=== PATIENT | male | born 1990 | race Caucasian/White ===

== ENCOUNTER 2019-09-14 12:05 | Emergency (ER) | payer OTHER ==
[~2019-09-14] VITALS: Ht 177.8 cm; Wt 95.2 kg
[2019-09-14 12:10] VITALS: BP 132/98
[2019-09-14] MEDS ORDERED: LIDOCAINE 2%/EPI 1:100,000 20 ML VIAL. IJ ONE (12:30)
[2019-09-14] MEDS ORDERED: NEOMY/BACITR/POLYMYXIN OINT PACKET. TP ONE (12:30)
--- NOTE | 2019-09-14 12:31 | PHYS DOC ---
Past History Past Medical History: Hypertension (borderline) Additional Past Surgical Histo: Hand cyst Smoking: Non-smoker Alcohol Use: Rarely Drug Use: None General Adult EDM: Chief Complaint: HAND PROBLEM HPI: HPI: 29-year-old male presents with report of left distal pinky crush injury. Patient is and is stationed at [place]. 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 Reports he was wearing a glove at the time. Reports laceration to distal aspect of finger. Reports last tetanus booster was < 5 years ago. Denies taking any medication prior to arrival. Review of Systems: Review of Systems: Constitutional: Denies fever or chills Eyes: Denies redness or eye pain HENT: Denies nasal congestion or sore throat Respiratory: Denies cough or shortness of breath Cardiovascular: Denies chest pain or palpitations GI: Denies abdominal pain, nausea, or vomiting : Denies dysuria or hematuria Musculoskeletal: Denies back pain; reports left pinky pain Integument: Denies rash; reports laceration to left pinky Neurologic: Denies headache, focal weakness or sensory changes Complete systems were reviewed and found to be within normal limits, except as documented in this note. Physical Exam: PE: Constitutional: Well developed, well nourished, uncomfortable, non-toxic appearance HENT: Normocephalic, atraumatic, oropharynx moist Eyes: Conjunctiva normal, no discharge Neck: Normal range of motion, no tenderness, supple Cardiovascular: Left radial pulse +2, left pinky CR < 2 sec Lungs & Thorax: No respiratory distress, equal chest rise and fall Skin: Warm, dry, no erythema, 2cm laceration to palmar aspect of left 5th distal phalax Extremities: Tenderness to distal aspect of left pinky finger, Tendon function intact to all finger of left hand Neurologic: Alert and oriented X 3, no focal deficits noted Psychologic: Affect normal, judgment normal EKG: EKG: [] Radiology/Procedures: Radiology/Procedures: PROCEDURE: FINGER(S) LEFT INDICATION: Trauma to the hand COMPARISON: None. IMPRESSION: Left fifth digit of hand: 3 views obtained. Nondisplaced fracture of the distal aspect of the fifth distal phalanx. Electronically signed by: Eliseo George MD (09/14/2019 12:56 PM) [id number] Course & Med Decision Making: Course & Med Decision Making Pertinent Imaging studies reviewed. (See chart for details) Patient presents with crush injury to fifth distal phalanx of left hand which occurred just prior to arrival. Patient with subsequent laceration. Reports tetanus up-to-date. X-ray obtained with nondisplaced distal phalanx fracture. Concern for open fracture. Empiric antibiotic therefore provided. Digital block performed. Wound cleaned, copiously irrigated, repaired, and dressed. An aluminum finger splint applied. Patient stable for discharge with outpatient follow-up with PCP/Orthopedics. Orthopedic referral provided. Discussed findings and plan with patient, who acknowledges understanding and agreement. Kylie Disclaimer: Kylie Disclaimer: This electronic medical record was generated, in whole or in part, using a voice recognition dictation system. Departure Departure: Impression: Primary Impression: Crushing injury of finger of left hand Additional Impressions: Finger laceration Qualified Codes: S61.217A - Laceration without foreign body of left little finger without damage to nail, initial encounter Open fracture of finger, distal phalanx Qualified Codes: S62.667B - Nondisplaced fracture of distal phalanx of left little finger, initial encounter for open fracture Disposition: 01 HOME/RESIDENCE PRIOR TO ADM Condition: STABLE Referrals: BRET ALCALA MD Patient Instructions: Crush Injury, Fingers or Toes, [id number], Finger Fracture (Phalangeal)-SportsMed, Laceration Care, Adult, [id number] Additional Instructions: Do not soak your wound. You may shower. Clean wound daily with soap and water. Change dressing 2 times daily. Use over the counter antibiotic ointment with each dressing change. Sutures need to be removed in 7-10 days. Present to your family doctor or local urgent care for removal. You may also present to the ED but it will be an additional visit/charge. After suture removal you may use Vitamin E ointment to soften the wound and prevent scarring. Maintain splint, except when cleaning and re-dressing wound. Try to keep splint dry and clean. Use over the counter Tylenol and Ibuprofen for pain or discomfort. Scripts Cephalexin (KEFLEX) 500 Mg Capsule 1 CAP PO QID for Open fracture for 7 Days, #28 CAP 0 Refills Prov: MANJINDER HERNANDEZ DO 09/14/19 Splinting Splinting : Location: Left pinky finger Pre-Made Type: metal (aluminum finger splint) Pre-Proc Neuro Vasc Exam: normal Post-Proc Neuro Vasc Exam: normal, unchanged from pre-exam Laceration/Wound Repair Laceration/Wound Repair : Wound Location: upper extremity (left 5th finger- palmar aspect of distal phalanx) Wound's Depth, Shape: superficial, linear Wound Length (cm): 2 Wound Explored: no foreign body removed Irrigated w/ Saline (ccs): 200 Anesthesia: Lidocaine w/ Epi (2%) Volume Anesthetic (ccs): 2 Wound Debrided: minimal Wound Repaired With: sutures Suture Size/Type: 5:0, nylon Number of Sutures: 6 Sterile Dressing Applied?: Yes Splint Applied?: Yes Type of Splint Applied: Aluminum finger splint Progress Verbal consent obtained. Time out performed. Hand hygiene utilized. Base of left 5th finger also cleaned with ChloraPrep. Digital block performed (4 nerve) via dorsal approach with a 30-gauge hypodermic needle with (2) mL's of lidocaine 2% with epinephrine. Wound cleaned with ChloraPrep. Copious irrigation performed. Wound well approximated with 5-0 Nylon x 6 simple interrupted sutures placed. Patient tolerated procedure well and without difficulty. Empiric antibiotic ointment applied prior to sterile dressing. Aluminum finger splint applied for comfort and to protect sutures. MANJINDER HERNANDEZ DO September 14, 2019 12:31
[2019-09-14] MEDS ORDERED: CEPHALEXIN 250 MG CAPSULE PO ONE (12:45)
--- NOTE | 2019-09-14 12:59 | RAD ---
INDICATION: Trauma to the hand COMPARISON: None. IMPRESSION: Left fifth digit of hand: 3 views obtained. Nondisplaced fracture of the distal aspect of the fifth distal phalanx. Electronically signed by: Eliseo George MD (09/14/2019 12:56 PM) [id number]
[2019-09-14] MEDS ORDERED: CEPH-264 PO (13:01)
== END 2019-09-14 13:28 | disposition home or self-care (01) ==
LOC: ER 12:05
DX: S62.637B Displaced fracture of distal phalanx of left little finger, initial encounter for open fracture (principal); I10 Essential (primary) hypertension; X58.XXXA Exposure to other specified factors, initial encounter; Y93.89 Activity, other specified; Y92.89 Other specified places as the place of occurrence of the external cause; Y99.8 Other external cause status
CPT/HCPCS: 29130; 73140; 99283